=== PATIENT | female | born 1980 | race Caucasian/White ===

== ENCOUNTER 2018-09-19 19:54 | Emergency (ER) | payer MEDICAID, OTHER ==
[~2018-09-19] VITALS: Ht 160 cm; Wt 72.3 kg
[2018-09-19 20:15] VITALS: Ht 160 cm; Wt 72.3 kg
[2018-09-20] MEDS ORDERED: ACETAMINOPHEN 500 MG TAB PO STA (00:47)
[2018-09-20] MEDS ORDERED: KETOROLAC 60 MG INJ IM STA (00:47)
[2018-09-20] MEDS ORDERED: NITR-58 PO (00:49)
[2018-09-20] MEDS ORDERED: NAPR-985 PO (00:49)
[2018-09-20] MEDS ORDERED: NITROFURANTOIN (SR) 100 MG CAP PO ONE (01:00)
[2018-09-20 01:01] VITALS: BP 125/86; PULSE 79; RESP 18
--- NOTE | 2018-09-20 03:01 | ERD ---
ER Documentation Chief Complaint Chief Complaint C/O PELVIC PAIN AND VAGINAL BLEEDING X3 DAYS HPI 37 year-old [female] coming in today with Chief Complaint: Vaginal bleeding History of Present Illness: Patient reporting pelvic pain and vaginal bleeding for 3 days. Patient reports is different than regular period, Heavier. Review of systems: All systems were reviewed and are negative except for what is indicated in the history of present illness. Past Medical History: [Negative for hypertension, diabetes or other medical p roblems] Social History: [Patient denies tobacco, alcohol, elicit drug use] Medications: [None] Allergies: [NKDA] Social Concerns: Denies Social Concerns: Denies ROS All systems reviewed and are negative except as per history of present illness. Medications Home Meds Active Scripts Naproxen* (Naprosyn*) 500 Mg Tablet, 500 MG PO BID PRN for PAIN AND/OR INFLAMMATION, #30 TAB Prov:COURTNEY JHAVERI NP 09/20/18 Nitrofurantoin Monohyd Macrocr* (Macrobid*) 100 Mg Capsr, 100 MG PO BID for 7 Days, #9 CAP Prov:COURTNEY JHAVERI NP 09/20/18 Allergies Allergies: Coded Allergies: No Known Allergy (Unverified , 09/19/18) PMhx/Soc Medical and Surgical Hx: pt denies Medical Hx, pt denies Surgical Hx History of Surgery: No Hx Alcohol Use: No Hx Substance Use: No Hx Tobacco Use: No Smoking Status: Never smoker FmHx Family History: No diabetes, No coronary disease Physical Exam Vitals Vital Signs Date Temp Pulse Resp B/P (MAP) Pulse Ox O2 O2 Flow FiO2 Time Delivery Rate 09/20/18 97.8 79 18 125/86 98 Room Air 01:01 (99) 09/19/18 98.6 86 19 156/72 100 20:15 (100) Physical Exam Const: No acute distress Head: Atraumatic Eyes: Normal Conjunctiva ENT: Normal External Ears, Nose and Mouth. Neck: Full range of motion. No meningismus. Resp: Clear to auscultation bilaterally Cardio: Regular rate and rhythm, no murmurs Abd: Soft, non distended. Normal bowel sounds. Suprapubic tenderness. Skin: No petechiae or rashes Back: No midline or flank tenderness Ext: No cyanosis, or edema Neur: Awake and alert Psych: Normal Mood and Affect Result Diagram: 09/19/18 3954 Results 24 hrs Laboratory Tests Test 09/19/18 23:30 09/19/18 23:31 Urine Color RED Urine Clarity SLIGHTLY CLOUDY Urine pH 5.0 Urine Specific [place] 1.016 Urine Ketones NEGATIVE mg/dL Urine Nitrite NEGATIVE mg/dL Urine Bilirubin NEGATIVE mg/dL Urine Urobilinogen NEGATIVE mg/dL Urine Leukocyte Esterase TRACE Araceli/ul Urine Microscopic RBC > 182 /HPF Urine Microscopic WBC 13 /HPF Urine Squamous Epithelial Cells FEW /HPF Urine Bacteria FEW /HPF Urine Mucus FEW /HPF Urine Hemoglobin 3+ mg/dL Urine Glucose NEGATIVE mg/dL Urine Total Protein 1+ mg/dl White Blood Count 7.3 10^3/ul Red Blood Count 4.39 10^6/ul Hemoglobin 12.7 g/dl Hematocrit 37.6 % Mean Corpuscular Volume 85.6 fl Mean Corpuscular Hemoglobin 28.9 pg Mean Corpuscular Hemoglobin Concent 33.8 g/dl Red Cell Distribution Width 12.4 % Platelet Count 317 10^3/UL Mean Platelet Volume 9.9 fl Immature Granulocytes % 0.100 % Neutrophils % 57.4 % Lymphocytes % 36.4 % Monocytes % 4.7 % Eosinophils % 1.0 % Basophils % 0.4 % Nucleated Red Blood Cells % 0.0 /100WBC Immature Granulocytes # 0.010 10^3/ul Neutrophils # 4.2 10^3/ul Lymphocytes # 2.6 10^3/ul Monocytes # 0.3 10^3/ul Eosinophils # 0.1 10^3/ul Basophils # 0.0 10^3/ul Nucleated Red Blood Cells # 0.0 10^3/ul Serum HCG, Qualitative NEGATIVE Current Medications Medications Dose Sig/Jose Start Time Status Last (Trade) Ordered Route PRN Stop Time Admin Dose Reason Admin 100 mg ONCE ONCE 09/20/18 DC 09/20/18 Nitrofurantoi PO 01:00 00:54 n 09/20/18 01:01 Macrocrystals (Macrobid) Ketorolac 60 mg ONCE STAT 09/20/18 DC 09/20/18 Tromethamine IM 00:47 00:53 (Toradol) 09/20/18 00:48 1,000 mg ONCE STAT 09/20/18 DC 09/20/18 Acetaminophen PO 00:47 00:53 (Tylenol 2/21/19 00:48 Tab) Procedures/MDM Patient with complaint of vaginal bleeding ED course includes a thorough examination and history. Low suspicion for gastrointestinal or gynecological medical emergency Otherwise healthy patient presenting with constellation of symptoms likely representing uncomplicated functional uterine bleeding, urinary tract infection as characterized by history, physical exam findings [lab findings]. Urinalysis showing bacteria and leukocyte Estrace. No signs of anemia. Patient hemodynamically stable. No respiratory distress, otherwise relatively well appearing and nontoxic. Patient educated on diagnoses, prescriptions , follow-up care, return precautions. Strict return precautions given for worsening condition; questions answered discharge. Disposition for discharge with followup in 2-3 days with PCP/clinic, and [employer]. Departure Diagnosis: Primary Impression: Dysfunctional uterine bleeding Additional Impressions: Vaginal bleeding UTI (urinary tract infection) Urinary tract infection type: site unspecified Hematuria presence: without hematuria Qualified Codes: N39.0 - Urinary tract infection, site not specified Condition: Stable Patient Instructions: Understanding Urinary Tract Infections (UTIs), Dysfunctional Uterine Bleeding Referrals: [facility] YOU HAVE RECEIVED A MEDICAL SCREENING EXAM AND THE RESULTS INDICATE THAT YOU DO NOT HAVE A CONDITION THAT REQUIRES URGENT TREATMENT IN THE EMERGENCY DEPARTMENT. FURTHER EVALUATION AND TREATMENT OF YOUR CONDITION CAN WAIT UNTIL YOU ARE SEEN IN YOUR DOCTORS OFFICE WITHIN THE NEXT 1-2 DAYS. IT IS YOUR RESPONSIBILITY TO MAKE AN APPOINTMENT FOR FOLOW-UP CARE. IF YOU HAVE A PRIMARY DOCTOR --you should call your primary doctor and schedule an appointment IF YOU DO NOT HAVE A PRIMARY DOCTOR YOU CAN CALL OUR PHYSICIAN REFERRAL HOTLINE AT IF YOU CAN NOT AFFORD TO SEE A PHYSICIAN YOU CAN CHOSE FROM THE FOLLOWING [facility] [address] [facility] [address] [facility] [facility] [address] [facility] [address] [facility] [address] [facility]. [facility]. [address] [facility]. [facility] YOU HAVE RECEIVED A MEDICAL SCREENING EXAM AND THE RESULTS INDICATE THAT YOU DO NOT HAVE A CONDITION THAT REQUIRES URGENT TREATMENT IN THE EMERGENCY DEPARTMENT. FURTHER EVALUATION AND TREATMENT OF YOUR CONDITION CAN WAIT UNTIL YOU ARE SEEN IN YOUR DOCTORS OFFICE WITHIN THE NEXT 1-2 DAYS. IT IS YOUR RESPONSIBILITY TO MAKE AN APPOINTMENT FOR FOLOW-UP CARE. IF YOU HAVE A PRIMARY DOCTOR --you should call your primary doctor and schedule and appointment IF YOU DO NOT HAVE A PRIMARY DOCTOR YOU CAN CALL OUR PHYSICIAN REFERRAL HOTLINE AT . IF YOU CAN NOT AFFORD TO SEE A PHYSICIAN YOU CAN CHOSE FROM THE FOLLOWING [facility] INSTITUTIONS: [facility] [id number] [place] [address] [facility] [address] [place] [address] [facility] [address] [place] [address] Additional Instructions: Call your primary care doctor TOMORROW for an appointment during the next 2-3 days.See the doctor sooner or return here if your condition worsens before your appointment time. COURTENY JHAVERI NP Sep 20, 2018 03:01
== END 2018-09-20 01:02 | disposition home or self-care (01) ==
LOC: FTE 19:54
DX: N93.9 Abnormal uterine and vaginal bleeding, unspecified (principal); N39.0 Urinary tract infection, site not specified
CPT/HCPCS: 81001; 84703; 85025; J1885; Z7610; 36415; 96372